=== PATIENT | male | born 1965 | race Caucasian/White ===

== ENCOUNTER 2024-08-10 01:34 | Day surgery (SDC) | payer OTHER | END 2024-08-10 22:53 | disposition home or self-care (01) | LOC: WOUND 01:34 | PROC: 2W1VX6Z Compression of Left Toe using Pressure Dressing (ICD-10-PCS; principal; 2024-08-10) | DX: E11.621 Type 2 diabetes mellitus with foot ulcer (principal); L97.529 Non-pressure chronic ulcer of other part of left foot with unspecified severity; T81.89XD Other complications of procedures, not elsewhere classified, subsequent encounter; E11.40 Type 2 diabetes mellitus with diabetic neuropathy, unspecified ==

== ENCOUNTER 2024-08-12 04:57 | Day surgery (SDC) | payer OTHER | END 2024-08-13 01:41 | disposition home or self-care (01) | LOC: WOUND 04:57 | DX: E11.621 Type 2 diabetes mellitus with foot ulcer (principal); L97.525 Non-pressure chronic ulcer of other part of left foot with muscle involvement without evidence of necrosis; E11.65 Type 2 diabetes mellitus with hyperglycemia; E11.40 Type 2 diabetes mellitus with diabetic neuropathy, unspecified; T81.89XD Other complications of procedures, not elsewhere classified, subsequent encounter; Y83.8 Other surgical procedures as the cause of abnormal reaction of the patient, or of later complication, without mention of misadventure at the time of the procedure ==

== ENCOUNTER 2024-08-19 01:32 | Day surgery (SDC) | payer OTHER | END 2024-08-19 22:55 | disposition home or self-care (01) | LOC: WOUND 01:32 | DX: E11.621 Type 2 diabetes mellitus with foot ulcer (principal); E11.65 Type 2 diabetes mellitus with hyperglycemia; T81.89XD Other complications of procedures, not elsewhere classified, subsequent encounter; Y83.8 Other surgical procedures as the cause of abnormal reaction of the patient, or of later complication, without mention of misadventure at the time of the procedure ==

== ENCOUNTER 2024-08-22 04:01 | Day surgery (SDC) | payer OTHER | END 2024-08-23 23:10 | disposition home or self-care (01) | LOC: WOUND 04:01 | DX: S91.105D Unspecified open wound of left lesser toe(s) without damage to nail, subsequent encounter (principal); E11.36 Type 2 diabetes mellitus with diabetic cataract; Z89.422 Acquired absence of other left toe(s) ==

== ENCOUNTER 2024-08-24 02:33 | Day surgery (SDC) | payer OTHER | END 2024-08-24 23:19 | disposition home or self-care (01) | LOC: WOUND 02:33 | DX: E11.621 Type 2 diabetes mellitus with foot ulcer (principal); L97.523 Non-pressure chronic ulcer of other part of left foot with necrosis of muscle; T81.89XA Other complications of procedures, not elsewhere classified, initial encounter; E11.65 Type 2 diabetes mellitus with hyperglycemia; E11.40 Type 2 diabetes mellitus with diabetic neuropathy, unspecified ==

== ENCOUNTER 2024-08-26 01:18 | Day surgery (SDC) | payer OTHER | END 2024-08-27 03:02 | disposition home or self-care (01) | LOC: WOUND 01:18 | DX: T81.89XA Other complications of procedures, not elsewhere classified, initial encounter (principal); E11.621 Type 2 diabetes mellitus with foot ulcer; E11.40 Type 2 diabetes mellitus with diabetic neuropathy, unspecified; Z89.422 Acquired absence of other left toe(s) ==

== ENCOUNTER 2024-08-29 01:20 | Day surgery (SDC) | payer OTHER | END 2024-08-29 23:00 | disposition home or self-care (01) | LOC: WOUND 01:20 | DX: T81.89XA Other complications of procedures, not elsewhere classified, initial encounter (principal); E11.40 Type 2 diabetes mellitus with diabetic neuropathy, unspecified; E11.9 Type 2 diabetes mellitus without complications; Z89.422 Acquired absence of other left toe(s) ==

== ENCOUNTER 2024-12-30 11:39 | Day surgery (SDC) | payer OTHER ==
[~2024-12-30] VITALS: Ht 190.5 cm; Wt 91.7 kg
[~2024-12-30 11:39] MED LIST: Lactated Ringer's 1,000 ML IV ONE
[2024-12-30] MEDS ORDERED: Lidocaine HCl 2% 10 ML SDA ONE (11:43)
[2024-12-30] MEDS ORDERED: CeFAZolin Sodium 2,000 MG VIAL ONE (12:19)
[2024-12-30] MEDS ORDERED: GABA100 PO (12:27)
[2024-12-30] MEDS ORDERED: AMOX-CLAV 875-1 EAC5 PO (12:28)
[2024-12-30] MEDS ORDERED: SEMGLEE (Y100 UNIT/2 SQ (12:29)
[2024-12-30] MEDS ORDERED: LISINOPRIL2.5 MG PO (12:33)
[2024-12-30] MEDS ORDERED: METFORMIN HCL500 M3 PO (12:35)
[2024-12-30] MEDS ORDERED: ATORVASTATIN CA20 MG PO (12:35)
[2024-12-30] MEDS ORDERED: NOVOLOG FL100 UNIT/3 (12:37)
[2024-12-30] MEDS ORDERED: TRAMADOL HCL TAB 50M PO (12:39)
[2024-12-30] MEDS ORDERED: INSULIN GL100 UNIT/2 SQ (12:40)
[2024-12-30] MEDS ORDERED: OZEMPIC0.25 MG/02 SQ (12:43)
[2024-12-30] MEDS ORDERED: IBUP200 (12:44)
[2024-12-30] MEDS ORDERED: ACET500 PO (12:45)
[2024-12-30] MEDS ORDERED: Lactated Ringer's 1,000 ML IV ONE (13:01)
[2024-12-30] MEDS ORDERED: propofoL 0 ML IV ONE (14:00)
--- NOTE | 2024-12-30 14:04 | NUR ---
12/30/[address] GONZALEZ AWARE THAT PT TOOK OZEMPIC LAST ON THURSDAY 5 DAYS AGO.
[2024-12-30] MEDS ORDERED: Bupivacaine 0.5% HCl 5 MG/ML 30MLVIAL INJ ONE (14:21)
[2024-12-30] MEDS ORDERED: propofoL 20 ML IV ONE (15:01)
[2024-12-30] MEDS ORDERED: Dexamethasone Sod Phos 10 MG/ML 1ML VIAL ONE (15:10)
[2024-12-30] MEDS ORDERED: Ondansetron HCl 2 MG / ML 2ML Vial ONE (15:10)
[2024-12-30 15:16] VITALS: BP 136/86
--- NOTE | 2024-12-30 15:18 | NUR ---
12/30/24 1518 Marlene Wolff SIGNIFICANT OTHER BROUGHT TO BEDSIDE
== END 2024-12-30 15:35 | disposition home or self-care (01) ==
LOC: ORSCSDS 11:39
PROVIDERS: Podiatrist Foot & Ankle Surgery
PROC: 0JBR0ZX Excision of Left Foot Subcutaneous Tissue and Fascia, Open Approach, Diagnostic (ICD-10-PCS; principal; 2024-12-30 13:30)
PROC: 0Y6N0ZF Detachment at Left Foot, Partial 5th Ray, Open Approach (ICD-10-PCS; principal; 2024-12-30 13:30)
DX: E11.42 Type 2 diabetes mellitus with diabetic polyneuropathy (principal); L97.525 Non-pressure chronic ulcer of other part of left foot with muscle involvement without evidence of necrosis; Z89.439 Acquired absence of unspecified foot; I10 Essential (primary) hypertension; E78.5 Hyperlipidemia, unspecified; Z79.84 Long term (current) use of oral hypoglycemic drugs; Z79.899 Other long term (current) drug therapy
CPT/HCPCS: 82947; 88305; 88311; J0690; J1100; J2003; J2405; J2704; J7120

== ENCOUNTER → 2025-08-15 | Outpatient (CLI) | payer OTHER ==
[~2025-08-15] MED LIST changes: +ACET500 PO; +AMOX-CLAV 875-1 EAC5 PO; +ATORVASTATIN CA20 MG PO; +GABA100 PO; +IBUP200; +INSULIN GL100 UNIT/2 SQ; +LISINOPRIL2.5 MG PO; -Lactated Ringer's 1,000 ML IV ONE; +METFORMIN HCL500 M3 PO; +NOVOLOG FL100 UNIT/3; +OZEMPIC0.25 MG/02 SQ; +SEMGLEE (Y100 UNIT/2 SQ; +TRAMADOL HCL TAB 50M PO
[2025-08-15 13:37] LABS: BASOPHILS ABSOLUTE AUTO 0.04 K/mm3 (0.00-0.23); BASOPHILS PERCENT AUTO 1 % (0-2); EOSINOPHILS ABSOLUTE AUTO 0.24 K/mm3 (0.00-0.68); EOSINOPHILS PERCENT AUTO 3 % (0-6); Hematocrit 39.6 % (37.0-53.0); Hemoglobin 13.9 g/dL (13.5-17.5); IMMATURE GRAN ABSOLUTE AUTO 0.02 K/mm3 (0.00-0.10); IMMATURE GRAN PERCENT AUTO 0 % (0-1); LYMPHOCYTES ABSOLUTE AUTO 2.45 K/mm3 (0.84-5.20); LYMPHOCYTES PERCENT AUTO 33 % (21-46); MONOCYTES ABSOLUTE AUTO 0.45 K/mm3 (0.16-1.47); MONOCYTES PERCENT AUTO 6 % (4-13); Mean Corpuscular HGB Conc 35.1 g/dL (31.5-36.5); Mean Corpuscular Volume 84 fL (80-100); NEUTROPHILS ABSOLUTE AUTO 4.33 K/mm3 (1.96-9.15); NEUTROPHILS PERCENT AUTO 58 % (41-73); NRBC ABSOLUTE 0.00 K/mm3 (0.00-0.02); NRBC Auto 0.0 /100 WBC (0.0-0.2); Platelet Count 202 K/mm3 (150-400); RDW Coefficient Variation 12.5 % (11.7-14.2); RDW Standard Deviation 38.0 fL (35.1-46.3)
[2025-08-15 13:48] LABS: Alanine Aminotransfer (ALT/SGP 33.0 U/L (12-78); Albumin, Blood 4.5 g/dL (3.4-5.0); Albumin/Globulin Ratio 1.5 (0.8-1.8); Anion Gap 12.0 mmol/L (6-16); Aspartate Aminotrans (AST/SGOT 21.0 U/L (12-37); Bilirubin, Total 1.0 mg/dL (0.1-1.0); Blood Urea Nitrogen 21.0 mg/dL (8-24); CO2, Blood 30.0 mmol/L (21-32); Calcium, Blood 9.2 mg/dL (8.5-10.1); Chloride, Blood 101.0 mmol/L (98-108); Creatinine, Blood 0.86 mg/dL (0.60-1.20); Globulin, Blood 3.0 g/dL (2.2-4.0); Glucose, Blood 162.0 mg/dL (70-99); Potassium, Blood 4.0 mmol/L (3.5-5.5); Sodium, Blood 139.0 mmol/L (136-145); Total Protein, Blood 7.5 g/dL (6.4-8.2)
== END ==
LOC: LAB 13:31 → LAB SHORT 13:31
PROVIDERS: Family Medicine
DX: R07.89 Other chest pain (principal)
CPT/HCPCS: 80053; 84484; 85025

== ENCOUNTER 2025-09-07 02:49 | Day surgery (SDC) | payer OTHER ==
[2025-09-07] MEDS ORDERED: Lidocaine HCl 4% Cream 5 GM ONE (07:42)
== END 2025-09-07 23:00 | disposition home or self-care (01) ==
LOC: WOUND 02:49
DX: E11.621 Type 2 diabetes mellitus with foot ulcer (principal); L97.525 Non-pressure chronic ulcer of other part of left foot with muscle involvement without evidence of necrosis; E11.42 Type 2 diabetes mellitus with diabetic polyneuropathy; I70.203 Unspecified atherosclerosis of native arteries of extremities, bilateral legs; I10 Essential (primary) hypertension; E78.5 Hyperlipidemia, unspecified; Z79.84 Long term (current) use of oral hypoglycemic drugs; Z89.422 Acquired absence of other left toe(s); Z90.49 Acquired absence of other specified parts of digestive tract
CPT/HCPCS: A6213; A9270; G0463

== ENCOUNTER 2025-09-13 03:28 | Day surgery (SDC) | payer OTHER ==
[2025-09-13] MEDS ORDERED: Lidocaine HCl 4% Cream 5 GM ONE (14:43)
== END 2025-09-13 23:00 | disposition home or self-care (01) ==
LOC: WOUND 03:28
DX: E11.621 Type 2 diabetes mellitus with foot ulcer (principal); L97.525 Non-pressure chronic ulcer of other part of left foot with muscle involvement without evidence of necrosis; E11.42 Type 2 diabetes mellitus with diabetic polyneuropathy; I10 Essential (primary) hypertension
CPT/HCPCS: A6213; A9270; G0463

== ENCOUNTER 2025-09-22 01:09 | Day surgery (SDC) | payer OTHER ==
[2025-09-22] MEDS ORDERED: Lidocaine HCl 4% Cream 5 GM ONE (14:21)
== END 2025-09-22 23:00 | disposition home or self-care (01) ==
LOC: WOUND 01:09
DX: E11.621 Type 2 diabetes mellitus with foot ulcer (principal); L97.525 Non-pressure chronic ulcer of other part of left foot with muscle involvement without evidence of necrosis; E11.42 Type 2 diabetes mellitus with diabetic polyneuropathy; I10 Essential (primary) hypertension
CPT/HCPCS: A6213; A9270; G0463

== ENCOUNTER → 2025-09-24 | Outpatient (CLI) | payer OTHER ==
[2025-09-24 17:37] LABS: Creatinine, Urine Random 34.40 mg/dL (27.00-270.00)
[2025-09-24 17:40] LABS: Microalb/Creat Ratio UR, Rand Unable to Calculate mg/g (0.000-30.000); Microalbumin, Random Urine <5.000 mg/L (0.000-20.000)
== END ==
LOC: LAB 09:12 → LAB SHORT 09:12
PROVIDERS: Internal Medicine Endocrinology, Diabetes & Metabolism
DX: E11.65 Type 2 diabetes mellitus with hyperglycemia (principal); Z79.4 Long term (current) use of insulin
CPT/HCPCS: 82043; 82570

== ENCOUNTER 2025-09-29 00:37 | Day surgery (SDC) | payer OTHER ==
[2025-09-29] MEDS ORDERED: Lidocaine HCl 4% Cream 5 GM ONE (15:17)
== END 2025-09-29 23:00 | disposition home or self-care (01) ==
LOC: WOUND 00:37
DX: E11.621 Type 2 diabetes mellitus with foot ulcer (principal); L97.522 Non-pressure chronic ulcer of other part of left foot with fat layer exposed; I83.893 Varicose veins of bilateral lower extremities with other complications; E11.42 Type 2 diabetes mellitus with diabetic polyneuropathy; E11.51 Type 2 diabetes mellitus with diabetic peripheral angiopathy without gangrene; I70.203 Unspecified atherosclerosis of native arteries of extremities, bilateral legs; E11.69 Type 2 diabetes mellitus with other specified complication; M86.9 Osteomyelitis, unspecified
CPT/HCPCS: A6196; A6213; A9270

== ENCOUNTER 2025-10-06 02:29 | Day surgery (SDC) | payer OTHER ==
[2025-10-06] MEDS ORDERED: Lidocaine HCl 4% Cream 5 GM ONE (15:04)
== END 2025-10-06 23:00 | disposition home or self-care (01) ==
LOC: WOUND 02:29
DX: E11.621 Type 2 diabetes mellitus with foot ulcer (principal); L97.525 Non-pressure chronic ulcer of other part of left foot with muscle involvement without evidence of necrosis; E11.42 Type 2 diabetes mellitus with diabetic polyneuropathy; E11.51 Type 2 diabetes mellitus with diabetic peripheral angiopathy without gangrene; Z89.429 Acquired absence of other toe(s), unspecified side
CPT/HCPCS: A6213; A9270; G0463

== ENCOUNTER 2025-10-14 03:33 | Day surgery (SDC) | payer OTHER ==
[~2025-10-14 03:33] MED LIST changes: +Lidocaine HCl 4% Cream 5 GM ONE
== END 2025-10-14 23:00 | disposition home or self-care (01) ==
LOC: WOUND 03:33
DX: E11.621 Type 2 diabetes mellitus with foot ulcer (principal); L97.525 Non-pressure chronic ulcer of other part of left foot with muscle involvement without evidence of necrosis; E11.42 Type 2 diabetes mellitus with diabetic polyneuropathy; I10 Essential (primary) hypertension
CPT/HCPCS: A6213; A9270

== ENCOUNTER 2025-10-18 01:19 | Day surgery (SDC) | payer OTHER ==
[~2025-10-18 01:19] MED LIST changes: -Lidocaine HCl 4% Cream 5 GM ONE
[2025-10-18] MEDS ORDERED: Lidocaine HCl 4% Cream 5 GM ONE (15:21)
== END 2025-10-18 23:00 | disposition home or self-care (01) ==
LOC: WOUND 01:19
DX: E11.621 Type 2 diabetes mellitus with foot ulcer (principal); L97.525 Non-pressure chronic ulcer of other part of left foot with muscle involvement without evidence of necrosis; E11.42 Type 2 diabetes mellitus with diabetic polyneuropathy; I83.893 Varicose veins of bilateral lower extremities with other complications; I70.203 Unspecified atherosclerosis of native arteries of extremities, bilateral legs
CPT/HCPCS: A9270; G0463

== ENCOUNTER 2025-10-27 03:19 | Day surgery (SDC) | payer OTHER ==
[2025-10-27] MEDS ORDERED: Lidocaine HCl 4% Cream 5 GM ONE (15:22)
== END 2025-10-27 23:00 | disposition home or self-care (01) ==
LOC: WOUND 03:19
DX: E11.621 Type 2 diabetes mellitus with foot ulcer (principal); L97.525 Non-pressure chronic ulcer of other part of left foot with muscle involvement without evidence of necrosis; E11.40 Type 2 diabetes mellitus with diabetic neuropathy, unspecified; I10 Essential (primary) hypertension
CPT/HCPCS: A6213; A9270; G0463

== ENCOUNTER 2025-11-03 06:51 | Day surgery (SDC) | payer OTHER ==
[2025-11-03] MEDS ORDERED: Lidocaine HCl 4% Cream 5 GM ONE (15:18)
== END 2025-11-03 23:00 | disposition home or self-care (01) ==
LOC: WOUND 06:51
DX: E11.621 Type 2 diabetes mellitus with foot ulcer (principal); L97.525 Non-pressure chronic ulcer of other part of left foot with muscle involvement without evidence of necrosis; E11.42 Type 2 diabetes mellitus with diabetic polyneuropathy; Z89.422 Acquired absence of other left toe(s)
CPT/HCPCS: A6213; A9270

== ENCOUNTER 2025-11-10 00:59 | Day surgery (SDC) | payer OTHER ==
[2025-11-10] MEDS ORDERED: Lidocaine HCl 4% Cream 5 GM ONE (15:21)
== END 2025-11-10 23:00 | disposition home or self-care (01) ==
LOC: WOUND 00:59
DX: E11.621 Type 2 diabetes mellitus with foot ulcer (principal); L97.525 Non-pressure chronic ulcer of other part of left foot with muscle involvement without evidence of necrosis; E11.42 Type 2 diabetes mellitus with diabetic polyneuropathy; E11.51 Type 2 diabetes mellitus with diabetic peripheral angiopathy without gangrene; I70.202 Unspecified atherosclerosis of native arteries of extremities, left leg
CPT/HCPCS: A6213; A9270